=== PATIENT | male | born 1950 | race Caucasian/White ===

== ENCOUNTER 2023-01-06 17:07 | Emergency (ER) | payer MEDICARE, MEDICAID ==
[~2023-01-06] VITALS: Ht 175 cm; Wt 107.5 kg
[2023-01-06] MEDS ORDERED: HYDR100T27 (17:42)
[2023-01-06] MEDS ORDERED: TORS100T4 (17:42)
[2023-01-06] MEDS ORDERED: ISOS60TA63 (17:42)
[2023-01-06] MEDS ORDERED: CLN.1T (17:42)
--- NOTE | 2023-01-06 17:46 | ED General ---
General Chief Complaint: Respiratory Problems Stated Complaint: TROUBLE BREATHING Nursing Triage Note: PT PRESENTS TO ED VIA POV FROM HOME WITH COMPLAINTS OF INCREASED SOA WITH EXERTION, WALKING OR CLIMBING STAIRS. PT ALSO REPORTS INCREASE IN SWELLING. Source of Information: Patient Exam Limitations: No Limitations (TIFF ORTEGA DO) History of Present Illness Date Seen by Provider: Jan 06, 2023 Time Seen by Provider: 17:34 Initial Comments 72-year-old male presents to the emergency department today for shortness of breath. Symptoms are mostly with exertion and have been progressive over the last week and a half. Prior to this he was quite active, still playing competitive softball and walking frequently. He states onset was a week and a half ago when he was at [employer] and noticed after he walked upstairs he was significantly winded. He is now walking shorter and shorter distances with increasing dyspnea on exertion. He actually left the [employer] on Sunday of this week due to concerns for shortness of breath. He denies any cough. No history of cardiac or respiratory disease. He does have significant chronic kidney disease, sees Dr. Sanchez at [place]. He is on torsemide, hydralazine. He does have significant bilateral leg swelling which she states is fairly normal for him. He denies any chest pains. He does not have any shortness of breath while at rest. He has never had a heart cath or a stress test. All other systems reviewed and negative except documented per HPI. Voice recognition software was used to help create this chart (TIFF ORTEGA DO) Allergies and Home Medications Allergies Coded Allergies: Cezvqnn-ZMN-VbI Reductase Inhibitor (Verified Allergy, Unknown, 01/06/23) Patient Home Medication List Home Medication List Reviewed: Yes (TIFF ORTEGA DO) Clonidine HCl (Clonidine HCl) 0.1 Mg Tablet, (Reported) Entered as Reported by: LEODAN MENDEZ on 01/06/231741 Last Action: New Order Hydralazine HCl (Hydralazine HCl) 100 Mg Tablet, (Reported) Entered as Reported by: LEODAN MENDEZ on 01/06/231741 Last Action: New Order Isosorbide Mononitrate (Isosorbide Mononitrate ER) 60 Mg Tab, (Reported) Entered as Reported by: LEODAN MENDEZ on 01/06/231741 Last Action: New Order Torsemide (Torsemide) 100 Mg Tablet, (Reported) Entered as Reported by: LEODAN MENDEZ on 01/06/231741 Last Action: New Order Review of Systems Review of Systems Constitutional: no symptoms reported (TIFF ORTEGA DO) Past Fuzmbfv-Adbqkr-Jpbpkz Hx Patient Social History Tobacco Use?: No Smoking Status: Never a Smoker Use of E-Cig and/or Vaping dev: No Substance use?: No Alcohol Use?: No Pt feels they are or have been: No (TIFF ORTEGA DO) Past Medical History Surgery/Hospitalization HX: DM, KIDNEY DISEASE, HTN (TIFF ORTEGA DO) Family Medical History Reviewed Nursing Family Hx (TIFF ORTEGA DO) Physical Exam Vital Signs Vital Signs - First Documented 01/06/23 17:32 Temp 36.1 Pulse 74 Resp 20 B/P (MAP) 160/69 (99) Pulse Ox 94 O2 Delivery Room Air (LOGAN VILLAVICENCIO DO) Vital Signs Capillary Refill : Less Than 3 Seconds (TIFF ORTEGA DO) Height, Weight, BMI Height: '" Weight: lbs. oz. kg; 35.00 BMI Method: General Appearance: No Apparent Distress, WD/WN Eyes: Bilateral Eye Normal Inspection, Bilateral Eye PERRL, Bilateral Eye EOMI HEENT: Normal ENT Inspection, Pharynx Normal Neck: Full Range of Motion, Normal Inspection, Non Tender, Supple Respiratory: Chest Non Tender, No Accessory Muscle Use, No Respiratory Distress, Other (Scant inspiratory and expiratory wheezes bilaterally) Cardiovascular: Regular Rate, Rhythm, No Murmur Gastrointestinal: Normal Bowel Sounds, No Organomegaly, No Pulsatile Mass, Non Tender Extremity: Swelling (3+ pitting edema bilateral lower extremities) Neurologic/Psychiatric: Alert, Oriented x3, No Motor/Sensory Deficits Skin: Normal Color, Warm/Dry (TIFF ORTEGA DO) Focused Exam Sepsis Stage: Ruled Out Reason for ruling out sepsis: DOES NOT MEET CRITERIA Possible Source: Pulmonary Lactate Level 01/06/23 19:17: (ANI VILLAVICENCIOA Hany DO) Time of Focused Exam: 19:00 Respiratory: No Accessory Muscle Use, No Respiratory Distress, Decreased Breath Sounds (DECREASED IN BASES--RIGHT > LEFT) Cardiovascular: Regular Rate, Rhythm, No Murmur Capillary Refill: Less Than 3 Seconds Skin: normal color, warm/dry Lactic Acid Level Laboratory Tests Test 01/06/23 19:17 (LOGAN VILLAVICENCIO DO) Within 3hrs of presentation: Admin ABX, Blood cultures prior to ABX's, Focus exam, Lactate level, Other (FLUIDS HELD DUE TO FLUID OVERLOAD IN RENAL FAILURE AND NORMAL VITALS. ) (LOGAN VILLAVICENCIO DO) Progress/Results/Core Measures Suspected Sepsis SIRS Temperature: Pulse: 74 Respiratory Rate: 20 Blood Pressure 160 /69 Mean: 99 (TIFF ORTEGA ) Results/Orders Lab Results Laboratory Tests Test 01/06/23 18:12 01/06/23 18:39 01/06/23 19:17 Range/Units White Blood Count 6.2 4.3-11.0 10^3/uL Red Blood Count 2.60 L 4.30-5.52 10^6/uL Hemoglobin 7.3 L 13.3-17.7 g/dL Hematocrit 23 L 40-54 % Mean Corpuscular Volume 89 80-99 fL Mean Corpuscular Hemoglobin 28 25-34 pg Mean Corpuscular Hemoglobin Concent 32 32-36 g/dL Red Cell Distribution Width 14.1 10.0-14.5 % Platelet Count 201 130-400 10^3/uL Mean Platelet Volume 9.8 9.0-12.2 fL Immature Granulocyte % (Auto) 0 % Neutrophils (%) (Auto) 68 42-75 % Lymphocytes (%) (Auto) 13 12-44 % Monocytes (%) (Auto) 10 0-12 % Eosinophils (%) (Auto) 9 0-10 % Basophils (%) (Auto) 1 0-10 % Neutrophils # (Auto) 4.2 1.8-7.8 10^3/uL Lymphocytes # (Auto) 0.8 L 1.0-4.0 10^3/uL Monocytes # (Auto) 0.6 0.0-1.0 10^3/uL Eosinophils # (Auto) 0.5 H 0.0-0.3 10^3/uL Basophils # (Auto) 0.1 0.0-0.1 10^3/uL Immature Granulocyte # (Auto) 0.0 0.0-0.1 10^3/uL Prothrombin Time 14.8 H 12.2-14.7 SEC INR Comment 1.1 0.8-1.4 Activated Partial Thromboplast Time 33 24-35 SEC D-Dimer 1.34 H 0.00-0.49 UG/ML Sodium Level 140 135-145 MMOL/L Potassium Level 4.3 3.6-5.0 MMOL/L Chloride Level 110 H 98-107 MMOL/L Carbon Dioxide Level 15 L 21-32 MMOL/L Anion Gap 15 H 5-14 MMOL/L Blood Urea Nitrogen 51 H 7-18 MG/DL Creatinine 7.50 H 0.60-1.30 MG/DL Estimat Glomerular Filtration Rate 7 BUN/Creatinine Ratio 7 Glucose Level 94 70-105 MG/DL Calcium Level 8.4 L 8.5-10.1 MG/DL Corrected Calcium 8.5 8.5-10.1 MG/DL Magnesium Level 2.2 1.6-2.4 MG/DL Total Bilirubin 0.6 0.1-1.0 MG/DL Aspartate Amino Transf (AST/SGOT) 11 5-34 U/L Alanine Aminotransferase (ALT/SGPT) 7 0-55 U/L Alkaline Phosphatase 77 40-136 U/L Troponin I < 0.028 <0.028 NG/ML B-Type Natriuretic Peptide 445.8 H <100.0 PG/ML Total Protein 6.4 6.4-8.2 GM/DL Albumin 3.9 3.2-4.5 GM/DL Influenza Type A (RT-PCR) Not Detected Not Detecte Influenza Type B (RT-PCR) Not Detected Not Detecte SARS-CoV-2 RNA (RT-PCR) Not Detected Not Detecte Urine Color YELLOW Urine Clarity CLEAR Urine pH 6.0 5-9 Urine Specific [place] 1.020 1.016-1.022 Urine Protein 3+ H NEGATIVE Urine Glucose (UA) NEGATIVE NEGATIVE Urine Ketones NEGATIVE NEGATIVE Urine Nitrite NEGATIVE NEGATIVE Urine Bilirubin NEGATIVE NEGATIVE Urine Urobilinogen 0.2 < = 1.0 MG/DL Urine Leukocyte Esterase NEGATIVE NEGATIVE Urine RBC (Auto) NEGATIVE NEGATIVE Urine RBC NONE /HPF Urine WBC RARE /HPF Urine Squamous Epithelial Cells RARE /HPF Urine Crystals NONE /LPF Urine Bacteria NEGATIVE /HPF Urine Casts NONE /LPF Urine Mucus NEGATIVE /LPF Urine Culture Indicated NO (SAUD,LOGAN K DO) My Orders Orders - SAUD,LOGAN K DO Fibrin Degradation Products (01/06/23 18:15) Magnesium (01/06/23 18:15) Protime With Inr (01/06/23 18:15) Partial Thromboplastin Time (01/06/23 18:15) Blood Culture (01/06/23 19:04) Urine Culture (01/06/23 19:04) Ed Iv/Invasive Line Start (01/06/23 19:04) Vital Signs Adult Sepsis Patie Q15M (01/06/23 19:04) O2 (01/06/23 19:04) Remove Rings In Anticipation O (01/06/23 19:04) Lactic Acid Analyzer (01/06/23 19:04) Ceftriaxone 1 Gm Pre-Mix (Rocephin 1 Gm (01/06/23 19:15) Azithromycin Injection (Zithromax Inject (01/06/23 19:15) (LOGAN VILLAVICENCIO DO) Medications Given in ED Current Medications Medications Dose Ordered Sig/Duane Route Start Time Stop Time Status Last Admin Dose Admin Azithromycin 500 mg/Sodium Chloride 255 ml @ 250 mls/hr ONCE ONCE IV 01/06/23 19:15 01/06/23 20:16 01/06/23 19:29 250 MLS/HR Ceftriaxone Sodium/Dextrose 50 ml @ 100 mls/hr ONCE ONCE IV 01/06/23 19:15 01/06/23 19:44 01/06/23 19:27 100 MLS/HR (LOGAN VILLAVICENCIO DO) Vital Signs/I&O 01/06/23 01/06/23 17:32 17:32 Temp 36.1 Pulse 74 Resp 20 B/P (MAP) 160/69 (99) Pulse Ox 94 O2 Delivery Room Air (LOGAN VILLAVICENCIO DO) Vital Signs/I&O Capillary Refill : Less Than 3 Seconds (TIFF ORTEGA DO) Blood Pressure Mean: 99 Progress Note : Progress Note 1800--ASSUMED CARE OF PT AT SHIFT CHANGE, ALL STUDIES PENDING. VITALS STABLE. PT HAS NOT HAD ANY PRIOR VISITS HERE NO DETERIORATION PT'S CONDITION DURING ER STAY VITALS STABLE REVIEWED TEST RESULTS, AND NEED FOR TRANSFER. PT IS AGREEABLE TO PLAN PT STATES HE HAS A FISTULA IN HIS LEFT ARM, BUT HAS NOT EVER HAD TO HAVE DIALYSIS. (LOGAN VILLAVICENCIO DO) Diagnostic Imaging Comments CXR--PER RADIOLOGIST REPORT AT 1904 FINDINGS: There is a right lower lobe consolidation and pleural fluid suspect for pneumonia. The heart is mildly enlarged and there is some borderline venous congestion. IMPRESSION: Right pleural effusion and subjacent consolidation. Upper limits heart size and venous caliber. The left chest clear. Reviewed: Reviewed by Me (LOGAN VILLAVICENCIO DO) Departure Communication (Admissions) Care handed over to Dr. VILLAVICENCIO at shift change, 1800 (TIFF ORTEGA DO) 1914--CALLED [facility]. 1924--SPOKE WITH DR. HENSON, HOSPITALIST, ACCEPTS PT FOR ADMIT. (LOGAN VILLAVICENCIO DO) Impression Primary Impression: RLL pneumonia Additional Impressions: Chronic renal failure Fluid overload Disposition: XF SHT-TRM HOSP Condition: Stable Transfer Transfer Reason: Exceeds level of care (NEED FOR MULTISPECIALTY CARE UNAVAILABLE HERE INCLUDING NEPHROLOGY/DIALYSIS AND PULMONOLOGY) Transfer Facility: [place], [place] Method of Transfer: EMS (LOGAN VILLAVICENCIO DO) Departure-Patient Inst. Referrals: [facility] (PCP/Family) Primary Care Physician TIFF ORTEGA DO Jan 06, 2023 17:46 LOGAN VILLAVICENCIO DO Jan 06, 2023 19:04
[2023-01-06 18:19] LABS: BASOPHILS # (AUTO) 0.1 10^3/uL (0.0-0.1); BASOPHILS % (AUTO) 1 % (0-10); EOSINOPHILS # (AUTO) 0.5 10^3/uL (0.0-0.3); EOSINOPHILS % (AUTO) 9 % (0-10); HEMATOCRIT 23 % (40-54); HEMOGLOBIN 7.3 g/dL (13.3-17.7); LYMPHOCYTES # (AUTO) 0.8 10^3/uL (1.0-4.0); LYMPHOCYTES % (AUTO) 13 % (12-44); MEAN CORPUSCULAR HEMOGLOBIN 28 pg (25-34); MEAN CORPUSCULAR HGB CONC 32 g/dL (32-36); MEAN CORPUSCULAR VOLUME 89 fL (80-99); MEAN PLATELET VOLUME 9.8 fL (9.0-12.2); MONOCYTES # (AUTO) 0.6 10^3/uL (0.0-1.0); MONOCYTES % (AUTO) 10 % (0-12); NEUTROPHILS # (AUTO) 4.2 10^3/uL (1.8-7.8); NEUTROPHILS % (AUTO) 68 % (42-75); PLATELET COUNT 201 10^3/uL (130-400); WHITE BLOOD COUNT 6.2 10^3/uL (4.3-11.0)
[2023-01-06 18:35] LABS: ALBUMIN 3.9 GM/DL (3.2-4.5); CHLORIDE 110 MMOL/L (98-107); POTASSIUM 4.3 MMOL/L (3.6-5.0); SODIUM 140 MMOL/L (135-145)
[2023-01-06 18:37] LABS: CALCIUM 8.4 MG/DL (8.5-10.1)
[2023-01-06 18:38] LABS: GLUCOSE 94 MG/DL (70-105); TOTAL PROTEIN 6.4 GM/DL (6.4-8.2)
[2023-01-06 18:39] LABS: BILIRUBIN,TOTAL 0.6 MG/DL (0.1-1.0); CARBON DIOXIDE 15 MMOL/L (21-32)
[2023-01-06 18:41] LABS: ALKALINE PHOSPHATASE 77 U/L (40-136); GFR ESTIMATED 7
[2023-01-06 18:42] LABS: BUN/CREATININE RATIO 7
[2023-01-06 18:43] LABS: FIBRIN DEGRADATION PRODUCTS 1.34 UG/ML (0.00-0.49); INR 1.1 (0.8-1.4); PROTHROMBIN TIME PATIENT 14.8 SEC (12.2-14.7)
[2023-01-06 18:44] LABS: ALANINE AMINOTRANSFERASE 7 U/L (0-55); MAGNESIUM 2.2 MG/DL (1.6-2.4)
[2023-01-06 18:53] LABS: BILIRUBIN,URINE NEGATIVE (NEGATIVE); CLARITY,URINE CLEAR; COLOR,URINE YELLOW; GLUCOSE, URINE (UA) NEGATIVE (NEGATIVE); KETONES,URINE NEGATIVE (NEGATIVE); LEUKOCYTE ESTERASE ,URINE NEGATIVE (NEGATIVE); NITRITE,URINE NEGATIVE (NEGATIVE); PROTEIN,URINE 3+ (NEGATIVE)
--- NOTE | 2023-01-06 18:56 | Diagnostic Imaging Report ---
INDICATION: Shortness of air. FINDINGS: There is a right lower lobe consolidation and pleural fluid suspect for pneumonia. The heart is mildly enlarged and there is some borderline venous congestion. IMPRESSION: Right pleural effusion and subjacent consolidation. Upper limits heart size and venous caliber. The left chest clear. Dictated by: Dictated on workstation # [id number]
[2023-01-06 19:04] LABS: BACTERIA,URINE NEGATIVE /HPF; SQUAMOUS EPITHELIAL CELL,UR RARE /HPF; WBC,URINE RARE /HPF
[2023-01-06] MEDS ORDERED: AZITHROMYCIN INJECTION 500 MG in NS (IVPB) 250 ML IV ONE (19:15)
[2023-01-06] MEDS ORDERED: cefTRIAXone 1 GM PRE-MIX 50 ML IV ONE (19:15)
[2023-01-06 20:46] VITALS: BP 161/75
== END 2023-01-06 20:48 | disposition short-term general hospital (02) ==
LOC: EDUNIT# 17:07 → ER 17:08
DX: J18.9 Pneumonia, unspecified organism (principal); E87.70 Fluid overload, unspecified; I12.9 Hypertensive chronic kidney disease with stage 1 through stage 4 chronic kidney disease, or unspecified chronic kidney disease; E11.22 Type 2 diabetes mellitus with diabetic chronic kidney disease; N18.9 Chronic kidney disease, unspecified; Z20.822 Contact with and (suspected) exposure to COVID-19
CPT/HCPCS: 36415; 71045; 80053; 81000; 83605; 83735; 83880; 84484; 85025; 85379; 85610; 85730; 87040; 87088; 87636; 93005; 93041

== ENCOUNTER 2023-10-02 20:14 | Emergency (ER) | payer OTHER, MEDICARE ==
[~2023-10-02] VITALS: Ht 177.8 cm; Wt 103.4 kg
[~2023-10-02 20:14] MED LIST: CLN.1T; HYDR100T27; ISOS60TA63; TORS100T4
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
[2023-10-02] MEDS ORDERED: TRM50T PO (21:11)
[2023-10-02 21:25] VITALS: BP 164/64
== END 2023-10-02 21:26 | disposition home or self-care (01) ==
LOC: EDUNIT# 20:14 → ER 20:19
DX: S20.211A Contusion of right front wall of thorax, initial encounter (principal); I12.0 Hypertensive chronic kidney disease with stage 5 chronic kidney disease or end stage renal disease; E11.22 Type 2 diabetes mellitus with diabetic chronic kidney disease; N18.6 End stage renal disease; E66.9 Obesity, unspecified; Z99.2 Dependence on renal dialysis; Z68.35 Body mass index [BMI] 35.0-35.9, adult; V43.62XA Car passenger injured in collision with other type car in traffic accident, initial encounter; Y92.410 Unspecified street and highway as the place of occurrence of the external cause
CPT/HCPCS: 71046